=== PATIENT | male | born 1985 | race Caucasian/White ===

== ENCOUNTER 2021-09-14 14:32 | Emergency (ER) | payer OTHER ==
[~2021-09-14 14:32] MED LIST: OCUFLOX5 ML OD
[2021-09-14 16:22] LABS: BASOPHIL 0.3 % (0-2); EOSINOPHIL 0.5 % (0-5); HCT 48.8 % (42.0-52.0); HGB 16.4 g/dl (13.2-18.0); LYMPHOCYTE 8.7 % (15-48); MCH 30.5 pg (25.0-31.0); MCHC 33.6 g/dL (32.0-36.0); MCV 90.9 fL (78.0-100.0); MONOCYTE 4.3 % (0-12); MPV 10.3 fL (6.0-9.5); NEUTROPHIL 85.6 % (41-80); NRBC 0; PLT 225 K/uL (150-400); RBC 5.37 M/uL (4.70-6.00); RDW 12.1 % (11.5-14.0); WBC 12.4 K/uL (4.0-10.5)
[2021-09-14 16:50] LABS: ALBUMIN 3.9 g/dL (3.4-5.0); BILIRUBIN - TOTAL 0.4 mg/dL (0.2-1.0); BUN/CREAT RATIO (CALC) 17.9 RATIO; CREATININE 0.84 mg/dL (0.67-1.17); GLOBULIN (CALCULATION) 3.4 g/dL; POTASSIUM 3.8 mmol/L (3.5-5.1); TOTAL PROTEIN 7.3 g/dL (6.4-8.2)
[2021-09-14 16:58] LABS: CORONAVIRUS 2019 SARS-COV-2 NEGATIVE (NEGATIVE); INFLUENZA A NAA NEGATIVE (NEGATIVE)
[2021-09-14] MEDS ORDERED: ZPAK PO (17:56)
== END 2021-09-14 18:28 | disposition home or self-care (01) ==
LOC: FER 14:32
PROVIDERS: Nurse Practitioner Family
DX: J06.9 Acute upper respiratory infection, unspecified (principal); R94.31 Abnormal electrocardiogram [ECG] [EKG]; Z20.822 Contact with and (suspected) exposure to COVID-19; Z28.310 Unvaccinated for COVID-19
CPT/HCPCS: 36415; 80053; 84484; 85025; 93005; U0002